=== PATIENT | female | born 2000 | race African-American/Black ===

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

== ENCOUNTER 2019-01-28 09:35 | Outpatient (CLI) | payer BC ==
--- NOTE | 2019-01-28 10:24 | ULT ---
Exam: Transabdominal pelvic ultrasound HISTORY: Irregular menstrual bleeding. COMPARISON: none TECHNIQUE: Transabdominal imaging of the pelvis is performed. Ovaries are interrogated with grayscale , color flow, Doppler imaging and spectral waveform analysis FINDINGS: Uterus is identified measuring 8.9 x 2.8 x 3.7 cm. No myometrial masses Endometrium: Homogeneous echotexture. Endometrial diameter between 0.4 and 0.7 cm Free fluid: None Left ovary: Normal echotexture. Left ovary measures 2.0 x 3.6 x 2.5 cm Right ovary: Normal echotexture. Right ovary measures 3.6 x 3.5 x 2.5 cm Ovarian Doppler: Vascular flow to both ovaries IMPRESSION: Unremarkable pelvic ultrasound.
== END 2019-01-28 09:36 | disposition home or self-care (01) ==
LOC: BICULT 09:35
PROVIDERS: ATTEND Nurse Practitioner Women's Health
DX: N92.6 Irregular menstruation, unspecified (principal)
CPT/HCPCS: 76856; 93976